=== PATIENT | female | born 1980 | race Caucasian/White ===

== ENCOUNTER → 2021-06-03 | Outpatient (CLI) | payer OTHER | LOC: VAS 12:04 | DX: M79.661 Pain in right lower leg (principal) ==

== ENCOUNTER 2023-07-19 16:14 | Outpatient (RCR) | payer BC, OTHER ==
[2023-07-19] MEDS ORDERED: NS 1,000 ML IV ONE (17:27)
--- NOTE | 2023-09-14 11:31 | NUR ---
Downtime: An Electronic Health Record (EHR) downtime event occurred during this patient's care. For legal medical record information generated during the downtime period, please reference the patient's legal medical record. Paper or scanned documentation has been incorporated into the legal medical record which is maintained in accordance with Health Information Management (HIM) and record retention policies.
== END 2023-08-03 | disposition home or self-care (01) ==
LOC: AMSURD
DX: E86.0 Dehydration (principal); J10.1 Influenza due to other identified influenza virus with other respiratory manifestations
CPT/HCPCS: J7030

== ENCOUNTER → 2023-09-20 | Outpatient (CLI) | payer BC, OTHER | LOC: RAD 10:51 | DX: M25.571 Pain in right ankle and joints of right foot (principal) ==